=== PATIENT | male | born 1965 | race African-American/Black ===

== ENCOUNTER 2017-06-02 14:25 | Emergency (ER) | payer MEDICAID, OTHER ==
[~2017-06-02] VITALS: Ht 175.3 cm; Wt 70.5 kg
--- NOTE | 2017-06-02 15:26 | PD ---
HPI Chief Complaint: psychiatric evaluation Time Seen by Provider: 15:24 Travel History International Travel<30 days: No Contact w/Intl Traveler<30days: No History of Present Illness HPI Patient comes in under a Fletcher by police for allegedly making suicidal statements. Patient denies this. Patient denies any suicidal or homicidal ideations. Denies any medical complaints. Denies any chest pain, shortness of breath, abdominal pain, fevers, nausea, or vomiting. Denies anything making symptoms better or worse. FORMERLY [facility] Past Medical History Narrative Medical Muscle spasms Social History Alcohol Use: No Tobacco Use: No Substance Use: No Allergies-Medications (Allergen,Severity, Reaction): Uncoded Allergies: NUTS (Allergy, Intermediate, 06/02/17) Review of Systems Except as stated in HPI: all other systems reviewed are Neg Physical Exam Narrative GENERAL: Well-developed, well nourished, in no acute distress, and non-ill appearing. SKIN: Focused skin assessment warm and dry. HEAD: Atraumatic. Normocephalic. EYES: Pupils equal and round. EOMI. No scleral icterus. No injection or drainage. ENT: No nasal bleeding or discharge. Mucous membranes pink and moist. NECK: Trachea midline. Supple. No nuclear rigidity. CARDIOVASCULAR: Regular rate and rhythm. No murmur appreciated. RESPIRATORY: No accessory muscle use. No respiratory distress. Clear to auscultation. Breath sounds equal bilaterally. MUSCULOSKELETAL: No obvious deformities. No clubbing. No cyanosis. No edema. Full range of motion. NEUROLOGICAL: Awake and alert. No obvious cranial nerve deficits. Motor grossly within normal limits. Normal speech. PSYCHIATRIC: Appropriate mood and affect; insight and judgment normal. Data Data Last Documented VS Vital Signs Date Time Temp Pulse Resp B/P Pulse Ox O2 Delivery O2 Flow Rate FiO2 06/02/17 16:02 97.5 67 18 105/73 Room Air Orders Complete Blood Count With Diff (06/02/17 15:19) Comprehensive Metabolic Panel (06/02/17 15:19) Psych Screen (06/02/17 15:19) Drug Screen, Random Urine (06/02/17 15:19) Alcohol (Ethanol) (06/02/17 15:19) Salicylates (Aspirin) (06/02/17 15:19) Tylenol (Acetaminophen) (8/17/17 15:19) Labs Laboratory Tests Test 06/02/17 06/02/17 06/02/17 06/02/17 14:32 16:30 16:32 16:33 Salicylates Level 16.4 MG/DL Urine Opiates Screen NEG Urine Barbiturates Screen NEG Urine Amphetamines Screen NEG Urine Benzodiazepines Screen NEG Urine Cocaine Screen POS Urine Cannabinoids Screen NEG White Blood Count 9.4 TH/MM3 Red Blood Count 4.72 MIL/MM3 Hemoglobin 14.0 GM/DL Hematocrit 41.4 % Mean Corpuscular Volume 87.8 FL Mean Corpuscular Hemoglobin 29.7 PG Mean Corpuscular Hemoglobin 33.8 % Concent Red Cell Distribution Width 13.8 % Platelet Count 406 TH/MM3 Mean Platelet Volume 6.9 FL Neutrophils (%) (Auto) 61.0 % Lymphocytes (%) (Auto) 31.4 % Monocytes (%) (Auto) 6.1 % Eosinophils (%) (Auto) 0.9 % Basophils (%) (Auto) 0.6 % Neutrophils # (Auto) 5.7 TH/MM3 Lymphocytes # (Auto) 2.9 TH/MM3 Monocytes # (Auto) 0.6 TH/MM3 Eosinophils # (Auto) 0.1 TH/MM3 Basophils # (Auto) 0.1 TH/MM3 CBC Comment DIFF FINAL Differential Comment Sodium Level 141 MEQ/L Potassium Level 4.0 MEQ/L Chloride Level 107 MEQ/L Carbon Dioxide Level 26.1 MEQ/L Anion Gap 8 MEQ/L Blood Urea Nitrogen 15 MG/DL Creatinine 1.39 MG/DL Estimat Glomerular Filtration 53 ML/MIN Rate Random Glucose 83 MG/DL Calcium Level 9.0 MG/DL Total Bilirubin 0.3 MG/DL Aspartate Amino Transf 11 U/L (AST/SGOT) Alanine Aminotransferase 13 U/L (ALT/SGPT) Alkaline Phosphatase 47 U/L Total Protein 7.7 GM/DL Albumin 3.9 GM/DL Acetaminophen Level LESS THAN 2.0 MCG/ML Ethyl Alcohol Level LESS THAN 3 MG/DL MDM Medical Decision Making Medical Screen Exam Complete: Yes Emergency Medical Condition: Yes Differential Diagnosis Homicidal, suicidal, electrolyte abnormality, alcohol intoxication, other Narrative Course Patient was seen and examined. Labs were obtained and reviewed. Patient medically cleared for further treatment and evaluation by psych. Final disposition per psych. Diagnosis Primary Impression: Medical clearance for psychiatric admission Additional Impression: Cocaine abuse Condition: Stable Marcel Mcneil Jun 02, 2017 15:26
[2017-06-02 16:02] VITALS: BP 105/73; PULSE 67; RESP 18; TEMP 97.5
[2017-06-02 17:23] LABS: AUTOMATED NEUTROPHIL # 5.7 TH/MM3 (1.8-7.7); BASOPHIL # 0.1 TH/MM3 (0-0.2); BASOPHIL % 0.6 % (0.0-2.0); EOSINOPHIL # 0.1 TH/MM3 (0-0.4); EOSINOPHIL % 0.9 % (0.0-4.0); HEMATOCRIT 41.4 % (39.0-51.0); HEMO FLAGS DIFF FINAL; LYMPH % 31.4 % (9.0-44.0); LYMPHOCYTE # 2.9 TH/MM3 (1.0-4.8); MEAN CELL VOLUME 87.8 FL (80.0-100.0); MEAN CORPUSCULAR HEMOGLOBIN 29.7 PG (27.0-34.0); MEAN CORPUSCULAR HGB CONC 33.8 % (32.0-36.0); MONO % 6.1 % (0.0-8.0); PLATELET COUNT 406 TH/MM3 (150-450); RED BLOOD COUNT 4.72 MIL/MM3 (4.50-5.90); RED CELL DISTRIBUTION WIDTH 13.8 % (11.6-17.2); WHITE BLOOD COUNT 9.4 TH/MM3 (4.0-11.0)
[2017-06-02 17:40] LABS: ALT (GPT) 13 U/L (12-78); ANION GAP 8 MEQ/L (5-15); AST (GOT) 11 U/L (15-37); BICARBONATE 26.1 MEQ/L (21.0-32.0); BLOOD UREA NITROGEN 15 MG/DL (7-18); CHLORIDE 107 MEQ/L (98-107); GLOMERULAR FILTRATION RATE 53 ML/MIN (>89); SODIUM (NA) 141 MEQ/L (136-145)
[2017-06-02 17:43] LABS: ALKALINE PHOSPHATASE 47 U/L (45-117); TOTAL BILIRUBIN ADULT 0.3 MG/DL (0.2-1.0)
[2017-06-02 17:54] LABS: ACETAMINOPHEN LESS THAN 2.0 MCG/ML (10.0-30.0); ALCOHOL LESS THAN 3 MG/DL (0-5)
[2017-06-02 18:58] VITALS: BP 105/66; PULSE 66; RESP 18; O2SAT 97
[2017-06-02] MEDS ORDERED: BACL10TA PO (19:42)
[2017-06-02] MEDS ORDERED: LEVE500 PO (19:42)
[2017-06-02] MEDS ORDERED: GABA300C5 PO (19:42)
[2017-06-02 22:08] VITALS: BP 106/63; PULSE 78; RESP 18; O2SAT 100
[2017-06-03 02:20] VITALS: BP 109/61; PULSE 55; RESP 18; O2SAT 99
[2017-06-03 06:26] VITALS: BP 108/69; PULSE 55; RESP 17; O2SAT 98
[2017-06-03 10:10] VITALS: BP 118/67; PULSE 56; RESP 18
--- NOTE | 2017-06-03 13:30 | PD ---
History of Present Illness Chief Complaint: Psychiatric Symptoms Time Seen by Provider: 13:30 Travel History International Travel<30 Days: No Contact w/Intl Traveler<30days: No Known affected area: No Legal Status Legal Status: Fletcher Act Fletcher Act Signed By: Jacqueline Fletcher Act Comment: DEP. LUCERTIA TORO #[id number] History of Present Illness: 51-year-old male brought in under a Fletcher act for supposedly suicidal behavior. Patient admits to a verbal altercation with family members but states at no time was he suicidal and he does not believe in it. Patient's cognition is intact and he has no psychotic symptoms. He states he has no suicidal or homicidal ideation, plan or intent and he verbally contracts for safety. He is obviously competent to do so. He does not understand quite how he got Fletcher acted in the first place but he has no lasting animosity towards family members. His urine is noted to be positive for cocaine metabolites. PFSH Past Medical History Medical History: Denies Significant Hx Diminished Hearing: No Seizures: Yes (started 2 years ago) Tetanus Vaccination: > 5 Years Influenza Vaccination: Yes (unsure when) Past Surgical History Surgical History: No Previous Surgery Psychiatric History Psychiatric History Hx Psychiatric Treatment: DENIES History of Inpatient Treatment: No Guns or firearms in home: No Social History Hx Alcohol Use: Yes (beer every 5-6 nights) Hx Tobacco Use: Yes Hx Substance Use: No Other Substances Used: PT. REPORTS HE DRINKS A COUPLE OF BEERS A WEEK. Hx of Substance Use Treatment: No Allergies-Medications (Allergen,Severity, Reaction): Uncoded Allergies: NUTS (Allergy, Intermediate, 06/02/17) Reported Meds & Prescriptions Reported Meds & Active Scripts Active Reported Gabapentin 300 Mg Cap 300 Mg PO TID Baclofen 10 Mg Tab 10 Mg PO TID Keppra (Levetiracetam) 500 Mg Tab 500 Mg PO BID Review of Systems Except as stated in HPI: all other systems reviewed are Neg Exam Alert: Yes [place]: Person, Place, Date, Situation Mood: Calm Affect: Appropriate Speech: Clear, Logical Eye Contact: Normal Memory Intact: Immediate, Recent, Remote Insight/Judgement Adequate MDM Medical Decision Making Medical Record Reviewed: Yes Assessment/Plan Patient has demonstrated he is calm, pleasant and cooperative for many hours. This physician reviewed his record and spoke with his nurse regarding his recent behavior. He is verbally stefani for safety and he is competent to do so. He has no suicidal or homicidal ideation, plan or intent. He does not meet criteria for Fletcher act or involuntary inpatient psychiatric hospitalization at this time. Orders Complete Blood Count With Diff (06/02/17 15:19) Comprehensive Metabolic Panel (06/02/17 15:19) Psych Screen (06/02/17 15:19) Drug Screen, Random Urine (06/02/17 15:19) Alcohol (Ethanol) (06/02/17 15:19) Salicylates (Aspirin) (06/02/17 15:19) Tylenol (Acetaminophen) (06/02/17 15:19) Diet Regular Basic (06/03/17 Breakfast) Diet Regular Basic (06/03/17 Lunch) Results Vital Signs Date Time Temp Pulse Resp B/P Pulse Ox O2 Delivery O2 Flow Rate FiO2 06/03/17 10:10 56 18 118/67 Room Air 06/03/17 06:26 55 17 108/69 98 Room Air 06/03/17 02:20 55 18 109/61 99 Room Air 06/03/17 01:00 18 06/02/17 22:08 78 18 106/63 100 Room Air 06/02/17 18:58 66 18 105/66 97 Room Air 06/02/17 16:02 97.5 67 18 105/73 Room Air Laboratory Tests Test 06/02/17 06/02/17 06/02/17 06/02/17 14:32 16:30 16:32 16:33 Salicylates Level 16.4 Urine Opiates Screen NEG Urine Barbiturates Screen NEG Urine Amphetamines Screen NEG Urine Benzodiazepines Screen NEG Urine Cocaine Screen POS Urine Cannabinoids Screen NEG White Blood Count 9.4 Red Blood Count 4.72 Hemoglobin 14.0 Hematocrit 41.4 Mean Corpuscular Volume 87.8 Mean Corpuscular Hemoglobin 29.7 Mean Corpuscular Hemoglobin 33.8 Concent Red Cell Distribution Width 13.8 Platelet Count 406 Mean Platelet Volume 6.9 Neutrophils (%) (Auto) 61.0 Lymphocytes (%) (Auto) 31.4 Monocytes (%) (Auto) 6.1 Eosinophils (%) (Auto) 0.9 Basophils (%) (Auto) 0.6 Neutrophils # (Auto) 5.7 Lymphocytes # (Auto) 2.9 Monocytes # (Auto) 0.6 Eosinophils # (Auto) 0.1 Basophils # (Auto) 0.1 CBC Comment DIFF FINAL Differential Comment Sodium Level 141 Potassium Level 4.0 Chloride Level 107 Carbon Dioxide Level 26.1 Anion Gap 8 Blood Urea Nitrogen 15 Creatinine 1.39 Estimat Glomerular Filtration 53 Rate Random Glucose 83 Calcium Level 9.0 Total Bilirubin 0.3 Aspartate Amino Transf 11 (AST/SGOT) Alanine Aminotransferase 13 (ALT/SGPT) Alkaline Phosphatase 47 Total Protein 7.7 Albumin 3.9 Acetaminophen Level LESS THAN 2.0 Ethyl Alcohol Level LESS THAN 3 Diagnosis Primary Impression: Adjustment disorder with mixed disturbance of emotions and conduct Additional Impression: Cocaine abuse Condition: Stable Problem Qualifiers Mariusz Stubbs MD Jun 03, 2017 13:30
== END 2017-06-03 15:17 | disposition home or self-care (01) ==
LOC: NEPJ 14:25
DX: F43.25 Adjustment disorder with mixed disturbance of emotions and conduct (principal); F14.10 Cocaine abuse, uncomplicated; R56.9 Unspecified convulsions; Z72.0 Tobacco use; Z79.899 Other long term (current) drug therapy
CPT/HCPCS: 80053; 80307; 85025; 99284

== ENCOUNTER 2017-08-01 10:44 | Emergency (ER) | payer MEDICAID, OTHER ==
[~2017-08-01] VITALS: Ht 175.3 cm; Wt 70.0 kg
[~2017-08-01 10:44] MED LIST: BACL10TA PO; GABA300C5 PO; LEVE500 PO
[2017-08-01 10:47] VITALS: BP 117/71; PULSE 88; RESP 18; TEMP 98.9; O2SAT 96
--- NOTE | 2017-08-01 11:36 | PD ---
HPI Chief Complaint: Medication Refill Request Time Seen by Provider: 11:30 Travel History International Travel<30 days: No Contact w/Intl Traveler<30days: No Traveled to known affect area: No History of Present Illness HPI 51-year-old male with history of seizure disorder presents to the emergency department requesting a refill of his seizure medication that he has not been on for the last 6 months. Patient states he has been having more frequent seizures. His last one yesterday. He has had no seizure activity today. He is accompanied by his mother and they both verbalize frustration and attempting to find a primary care provider for him. Patient has not been recently ill. He has had no fever or chills. He has no pain to report. No other symptoms at this time. History Social History Alcohol Use: Yes (beer every 5-6 nights) Tobacco Use: Yes Allergies-Medications (Allergen,Severity, Reaction): Uncoded Allergies: NUTS (Allergy, Intermediate, 06/02/17) Reported Meds & Prescriptions Reported Meds & Active Scripts Active Reported Gabapentin 300 Mg Cap 300 Mg PO TID Baclofen 10 Mg Tab 10 Mg PO TID Keppra (Levetiracetam) 500 Mg Tab 500 Mg PO BID Review of Systems Except as stated in HPI: all other systems reviewed are Neg Physical Exam Narrative GENERAL: Well-nourished, well-developed male patient, ambulatory and in no acute distress. SKIN: Focused skin assessment warm/dry. HEAD: Normocephalic. EYES: No scleral icterus. No injection or drainage. NECK: Supple, trachea midline. No JVD or lymphadenopathy. CARDIOVASCULAR: Regular rate and rhythm without murmurs, gallops, or rubs. RESPIRATORY: Breath sounds equal bilaterally. No accessory muscle use. GASTROINTESTINAL: Abdomen soft, non-tender, nondistended. MUSCULOSKELETAL: No cyanosis, or edema. BACK: Nontender without obvious deformity. No CVA tenderness. Data Data Last Documented VS Vital Signs Date Time Temp Pulse Resp B/P (MAP) Pulse Ox O2 Delivery O2 Flow Rate FiO2 08/01/17 10:47 98.9 88 18 117/71 (86) 96 MDM Medical Screen Exam Complete: Yes Emergency Medical Condition: No Differential Diagnosis medication refill; hx of seizure disorder Narrative Course 51-year-old male with history seizure disorder [facility] of his seizure medication that he has not been on for the last 6 months. The patient appears well. I have explained to him his increase in seizures is likely because he is not taking his medication, but he needs a primary care provider in follow-up to prescribed this for him. I have contacted the financial counselor who I have requested provide the patient information and follow-up appointment today or tomorrow. At this time there are no urgent or emergent needs for medical intervention identified. A medical screening exam was performed: At the time of evaluation the presenting medical condition was determined not to be of an emergent nature. The patient was given the option of receiving additional care, but declined. Patient was given options for additional community resources from which to obtain care. The Patient Has Been advised to seek medical attention for their presenting complaint. The patient has been advised to return to the ER at any time if an emergent condition develops. Primary Impression: Encounter for medical screening examination Condition: Cris Kidd Aug 01, 2017 11:36
== END 2017-08-01 11:49 | disposition left against medical advice (07) ==
LOC: NEPK 10:44
DX: G40.909 Epilepsy, unspecified, not intractable, without status epilepticus (principal); Z72.0 Tobacco use
CPT/HCPCS: 99281

== ENCOUNTER 2017-09-26 22:58 | Emergency (ER) | payer MEDICAID ==
[~2017-09-26] VITALS: Ht 175.3 cm; Wt 73.0 kg
[2017-09-26 23:03] VITALS: PULSE 71; RESP 18; O2SAT 98
[2017-09-26 23:09] VITALS: O2SAT 98
[2017-09-26] MEDS ORDERED: SODIUM CHLORIDE 0.9% FLUSH 10 ML FLUSH IVF PRN (23:15)
[2017-09-27] MEDS ORDERED: SODIUM CHLOR 0.9% 1000 ML INJ 1,000 ML IV ONE
[2017-09-27 01:29] LABS: ALKALINE PHOSPHATASE 40 U/L (45-117); CREATINE KINASE 129 U/L (39-308); TOTAL BILIRUBIN ADULT 0.2 MG/DL (0.2-1.0)
[2017-09-27 01:37] LABS: ALT (GPT) 11 U/L (12-78); ANION GAP 11 MEQ/L (5-15); AST (GOT) 11 U/L (15-37); BICARBONATE 20.5 MEQ/L (21.0-32.0); BLOOD UREA NITROGEN 9 MG/DL (7-18); CHLORIDE 109 MEQ/L (98-107); GLOMERULAR FILTRATION RATE 77 ML/MIN (>89); MAGNESIUM 1.7 MG/DL (1.5-2.5); POTASSIUM 3.4 MEQ/L (3.5-5.1); SODIUM (NA) 140 MEQ/L (136-145)
[2017-09-27 01:42] LABS: CKMB 0.9 NG/ML (0.5-3.6)
[2017-09-27 01:50] VITALS: BP 116/75; PULSE 60; RESP 20; O2SAT 95
[2017-09-27 02:27] LABS: AUTOMATED NEUTROPHIL # 3.7 TH/MM3 (1.8-7.7); BASOPHIL % 0.5 % (0.0-2.0); EOSINOPHIL # 0.1 TH/MM3 (0-0.4); EOSINOPHIL % 1.9 % (0.0-4.0); HEMATOCRIT 37.5 % (39.0-51.0); HEMO FLAGS DIFF FINAL; LYMPH % 38.2 % (9.0-44.0); LYMPHOCYTE # 2.5 TH/MM3 (1.0-4.8); MEAN CELL VOLUME 88.1 FL (80.0-100.0); MEAN CORPUSCULAR HEMOGLOBIN 29.7 PG (27.0-34.0); MEAN CORPUSCULAR HGB CONC 33.8 % (32.0-36.0); MONO % 4.3 % (0.0-8.0); NEUT % 55.1 % (16.0-70.0); PLATELET COUNT 298 TH/MM3 (150-450); RED BLOOD COUNT 4.25 MIL/MM3 (4.50-5.90); RED CELL DISTRIBUTION WIDTH 13.4 % (11.6-17.2); WHITE BLOOD COUNT 6.6 TH/MM3 (4.0-11.0)
--- NOTE | 2017-09-27 02:39 | PD ---
HPI Chief Complaint: Syncope/Near-Syncope Time Seen by Provider: 23:17 Travel History International Travel<30 days: No Contact w/Intl Traveler<30days: No Traveled to known affect area: No History of Present Illness HPI Patient is a 51-year-old male presents emergency department after 2 syncopal episodes. Patient states he had sat down at a local bar to watch a football game tonight, he states he had a beer or 2 and smoking marijuana approximately 10 minutes prior to having a syncopal episode today. According to EMS he had another syncopal episode for them in the back of the car, no arrhythmia was reported by EMS at that time. Patient denies any chest pain shortness of breath abdominal pain nausea vomiting focalized weakness. He states he does have a history of seizures but this did not feel like seizure. On presentation emergency department he states he feels fairly well. Symptoms are moderate, resolved, context as above, associated signs symptoms as above. PFSH Past Medical History Diminished Hearing: No Seizures: Yes (started 2 years ago) Tetanus Vaccination: < 5 Years Influenza Vaccination: No ?: Not Past Surgical History Thoracic Surgery: Yes (PT STATES HE HAD HERNIATED DISCS THAT WERE REPAIRED) Social History Alcohol Use: Yes (beer every 5-6 nights) Tobacco Use: Yes Substance Use: Yes (MARIJUANA ) Allergies-Medications (Allergen,Severity, Reaction): Uncoded Allergies: NUTS (Allergy, Intermediate, 06/02/17) Reported Meds & Prescriptions Reported Meds & Active Scripts Active Reported Gabapentin 300 Mg Cap 300 Mg PO TID Baclofen 10 Mg Tab 10 Mg PO TID Keppra (Levetiracetam) 500 Mg Tab 500 Mg PO BID Review of Systems Except as stated in HPI: all other systems reviewed are Neg Physical Exam Narrative GENERAL: Well-developed well-nourished, quite pleasant male in no obvious distress. SKIN: Focused skin assessment warm/dry. HEAD: Atraumatic. Normocephalic. EYES: Pupils equal and round. No scleral icterus. No injection or drainage. ENT: No nasal bleeding or discharge. Mucous membranes pink and moist. NECK: Trachea midline. No JVD. CARDIOVASCULAR: Regular rate and rhythm. No murmur appreciated. RESPIRATORY: No accessory muscle use. Clear to auscultation. Breath sounds equal bilaterally. GASTROINTESTINAL: Abdomen soft, non-tender, nondistended. Hepatic and splenic margins not palpable. MUSCULOSKELETAL: No obvious deformities. No clubbing. No cyanosis. No edema. NEUROLOGICAL: Awake and alert. Cranial nerves II through XII are grossly intact and nonfocal, 5 out of 5 strength in all 4 extremities, cerebellar testing negative, ambulates but even and coordinated. PSYCHIATRIC: Appropriate mood and affect; insight and judgment normal. Data Data Last Documented VS Vital Signs Date Time Temp Pulse Resp B/P (MAP) Pulse Ox O2 Delivery O2 Flow Rate FiO2 09/27/17 05:03 09/27/17 01:50 60 20 95 Room Air Orders Orders Electrocardiogram (09/26/17 23:05) Ckmb (Isoenzyme) Profile (09/26/17 23:05) Complete Blood Count With Diff (09/26/17 23:05) Comprehensive Metabolic Panel (09/26/17 23:05) Magnesium (Mg) (09/26/17 23:05) Prothrombin Time / Inr (Pt) (09/26/17 23:05) Act Partial Throm Time (Ptt) (09/26/17 23:05) Troponin I (09/26/17 23:05) Ecg Monitoring (09/26/17 23:05) Iv Access Insert/Monitor (09/26/17 23:05) Oximetry (09/26/17 23:05) Oxygen Administration (09/26/17 23:05) Sodium Chloride 0.9% Flush (Ns Flush) (09/26/17 23:15) Alcohol (Ethanol) (09/26/17 23:27) Sodium Chlor 0.9% 1000 Ml Inj (Ns 1000 M (09/27/17 00:00) CKMB (09/26/17 23:05) CKMB% (09/26/17 23:05) Ed Discharge Order (09/27/17 04:43) Labs Laboratory Tests Test 09/26/17 23:05 09/26/17 23:30 09/27/17 02:00 Blood Urea Nitrogen 9 MG/DL Creatinine 1.20 MG/DL Random Glucose 92 MG/DL Total Protein 6.1 GM/DL Albumin 3.1 GM/DL Calcium Level 7.7 MG/DL Magnesium Level 1.7 MG/DL Alkaline Phosphatase 40 U/L Aspartate Amino Transf (AST/SGOT) 11 U/L Alanine Aminotransferase (ALT/SGPT) 11 U/L Total Bilirubin 0.2 MG/DL Sodium Level 140 MEQ/L Potassium Level 3.4 MEQ/L Chloride Level 109 MEQ/L Carbon Dioxide Level 20.5 MEQ/L Anion Gap 11 MEQ/L Estimat Glomerular Filtration Rate 77 ML/MIN Total Creatine Kinase 129 U/L Creatine Kinase MB 0.9 NG/ML Troponin I LESS THAN 0.02 NG/ML Ethyl Alcohol Level 40 MG/DL White Blood Count 6.6 TH/MM3 Red Blood Count 4.25 MIL/MM3 Hemoglobin 12.6 GM/DL Hematocrit 37.5 % Mean Corpuscular Volume 88.1 FL Mean Corpuscular Hemoglobin 29.7 PG Mean Corpuscular Hemoglobin Concent 33.8 % Red Cell Distribution Width 13.4 % Platelet Count 298 TH/MM3 Mean Platelet Volume 7.4 FL Neutrophils (%) (Auto) 55.1 % Lymphocytes (%) (Auto) 38.2 % Monocytes (%) (Auto) 4.3 % Eosinophils (%) (Auto) 1.9 % Basophils (%) (Auto) 0.5 % Neutrophils # (Auto) 3.7 TH/MM3 Lymphocytes # (Auto) 2.5 TH/MM3 Monocytes # (Auto) 0.3 TH/MM3 Eosinophils # (Auto) 0.1 TH/MM3 Basophils # (Auto) 0.0 TH/MM3 CBC Comment DIFF FINAL Differential Comment Prothrombin Time 10.1 SEC Prothromb Time International Ratio 1.0 RATIO Activated Partial Thromboplast Time 19.2 SEC MDM Medical Decision Making Medical Screen Exam Complete: Yes Emergency Medical Condition: Yes Differential Diagnosis Recurrent seizure, syncopal episode, arrhythmia, ACS highly unlikely, intracranial injury highly unlikely, electrolyte abnormality. Narrative Course Patient roomed emergency department, initial workup significant for T-wave inversions in V4 through V6, otherwise labs including troponin negative. Patient mildly hypotensive on arrival is given a liter of normal saline and blood pressure normalized. This could be secondary to hypovolemia/dehydration possibly from alcohol tonight, also deep breathing from marijuana could contribute. Discussed with him the T-wave inversions in their implications and had suggested that he can stay in the hospital, he would rather follow up with his primary care physician that in this is reasonable to do given the most likely etiology of his single episode is not cardiac in origin given the history of present illness. Discussed with him return to ED criteria, he is stable for discharge. Diagnosis Primary Impression: Syncopal episodes Qualified Codes: T67.1XXA - Heat syncope, initial encounter Disposition: 01 DISCHARGE HOME Condition: Stable Gonzales Rajput MD Sep 27, 2017 02:39
[2017-09-27 02:52] LABS: APTT (PATIENT) 19.2 SEC (24.3-30.1); PROTHROMBIN TIME - PATIENT 10.1 SEC (9.8-11.6)
--- NOTE | 2017-09-27 14:15 | EKG ---
Date Performed: 09/26/2017 Time Performed: 23:15:04 PTAGE: 51 years EKG: NORMAL Sinus rhythm LVH WITH REPOLARIZATION ABNORMALITIES CANNOT EXCLUDE ISCHEMIA ABNORMAL ECG NO PREVIOUS TRACING DOCTOR: Spenser Glover Interpretating Date/Time 09/27/2017 14:13:22
== END 2017-09-27 05:12 | disposition home or self-care (01) ==
LOC: NEPC 22:58
DX: T67.1XXA Heat syncope, initial encounter (principal); F12.90 Cannabis use, unspecified, uncomplicated; Z72.0 Tobacco use; Z79.899 Other long term (current) drug therapy
CPT/HCPCS: 80053; 80307; 82550; 82552; 83735; 84484; 85025; 85610; 85730; 93005; 96360; 99284; J7030